=== PATIENT | female | born 1985 | race Caucasian/White ===

== ENCOUNTER 2016-04-28 16:47 | Emergency (ER) | payer BC ==
--- NOTE | 2016-04-28 17:19 | ER Document Report ---
ED Medical Screen (RME) - General Chief Complaint: Hip Injury Stated Complaint: FALL/LEFT HIP PAIN Notes: left hip pain sp fall three days ago I greeted and performed a rapid initial assessment of this patient. Comprehensive ED assessment and evaluation of the patient, analysis of test results and completion of the medical decision making process will be conducted by additional ED providers. TRAVEL OUTSIDE OF THE [place] IN LAST 30 DAYS: No - Related Data Allergies/Adverse Reactions: No Known Allergies Allergy (Verified 11/12/14 02:25) Past Medical History Pulmonary Medical History: Reports: Hx Asthma Infectious Medical History: Reports: Hx MRSA Past Surgical History: Reports: Hx Orthopedic Surgery - right hand Physical Exam - Vital signs Vitals: Temp Pulse Resp BP Pulse Ox 98.3 F 79 16 133/73 H 99 04/28/16 17:09 04/28/16 17:09 04/28/16 17:09 04/28/16 17:09 04/28/16 17:09 Course - Vital Signs Vital signs: Temp Pulse Resp BP Pulse Ox 98.3 F 79 16 133/73 H 99 04/28/16 17:09 04/28/16 17:09 04/28/16 17:09 04/28/16 17:09 04/28/16 17:09
--- NOTE | 2016-04-28 20:23 | ER Document Report ---
ED General - General Chief Complaint: Hip Injury Stated Complaint: FALL/LEFT HIP PAIN Mode of Arrival: Ambulatory Information source: Patient Notes: 30-year-old female presents with complaints of left hip pain after a fall 2 days ago. Patient denies any neurological deficits is able to ambulate. TRAVEL OUTSIDE OF THE [place] IN LAST 30 DAYS: No - HPI Onset: Other Onset/Duration: Persistent Quality of pain: Achy Severity: Mild Pain Level: 1 Associated symptoms: Other Exacerbated by: Movement Relieved by: Denies Similar symptoms previously: No Recently seen / treated by doctor: No - Related Data Allergies/Adverse Reactions: No Known Allergies Allergy (Verified 11/12/14 02:25) Past Medical History - Social History Smoking Status: Unknown if Ever Smoked Cigarette use (# per day): No Chew tobacco use (# tins/day): No Smoking Education Provided: No Family History: Reviewed & Not Pertinent Patient has suicidal ideation: No Patient has homicidal ideation: No Pulmonary Medical History: Reports: Hx Asthma Renal/ Medical History: Denies: Hx Peritoneal Dialysis Infectious Medical History: Reports: Hx MRSA Past Surgical History: Reports: Hx Orthopedic Surgery - right hand Review of Systems - Review of Systems Notes: REVIEW OF SYSTEMS: CONSTITUTIONAL : Denies fever, chills, or sweats. Denies recent illness. EENT: Denies eye, ear, throat, or mouth pain or symptoms. Denies nasal or sinus congestion or discharge. Denies throat, tongue, or mouth swelling or difficulty swallowing. CARDIOVASCULAR: Denies chest pain. Denies palpitations or racing or irregular heart beat. Denies ankle edema. RESPIRATORY: Denies cough, cold, or chest congestion. Denies shortness of breath, difficulty breathing, or wheezing. GASTROINTESTINAL: Denies abdominal pain or distention. Denies nausea, vomiting , or diarrhea. Denies blood in vomitus, stools, or per rectum. Denies black, tarry stools. Denies constipation. GENITOURINARY: Denies difficulty urinating, painful urination, burning, frequency, blood in urine, or discharge. FEMALE GENITOURINARY: Denies vaginal bleeding, heavy or abnormal periods, irregular periods. Denies vaginal discharge or odor. MUSCULOSKELETAL: Admits to left hip pain SKIN: Denies rash, lesions or sores. HEMATOLOGIC : Denies easy bruising or bleeding. LYMPHATIC: Denies swollen, enlarged glands. NEUROLOGICAL: Denies confusion or altered mental status. Denies passing out or loss of consciousness. Denies dizziness or lightheadedness. Denies headache. Denies weakness or paralysis or loss of use of either side. Denies problems with gait or speech. Denies sensory loss, numbness, or tingling. Denies seizures. PSYCHIATRIC: Denies anxiety or stress. Denies depression, suicidal ideation, or homicidal ideation. ALL OTHER SYSTEMS REVIEWED AND NEGATIVE. Dictation was performed using [employer] voice recognition software PHYSICAL EXAMINATION: GENERAL: Well-appearing, well-nourished and in no acute distress. HEAD: Atraumatic, normocephalic. EYES: Pupils equal round and reactive to light, extraocular movements intact, conjunctiva are normal. ENT: Nares patent, oropharynx clear without exudates. Moist mucous membranes. NECK: Normal range of motion, supple without lymphadenopathy LUNGS: Breath sounds clear to auscultation bilaterally and equal. No wheezes rales or rhonchi. HEART: Regular rate and rhythm without murmurs ABDOMEN: Soft, nontender, nondistended abdomen. No guarding, no rebound. No masses appreciated. Female : deferred Musculoskeletal: Normal range of motion, no pitting or edema. No cyanosis. NEUROLOGICAL: Cranial nerves grossly intact. Normal speech, normal gait. Normal sensory, motor exams PSYCH: Normal mood, normal affect. SKIN: Ecchymosis the right antecubital right knee Physical Exam - Vital signs Vitals: Temp Pulse Resp BP Pulse Ox 98.3 F 79 16 133/73 H 99 04/28/16 17:09 04/28/16 17:09 04/28/16 17:09 04/28/16 17:09 04/28/16 17:09 Course - Re-evaluation Re-evalutation: 04/28/16 20:21 X-ray physical examination the left hip notes no abnormality, patient's otherwise stable for discharge After performing a Medical Screening Examination, I estimate there is LOW risk for INTRACRANIAL HEMORRHAGE, UNSTABLE SPINE FRACTURE, CENTRAL CORD SYNDROME, CAUDA EQUINA, THORACIC AORTIC DISSECTION, PNEUMOTHORAX, PERFORATED BOWEL, RUPTURED ABDOMINAL AORTIC ANEURYSM, ACUTE TENDON RUPTURE, COMPARTMENT SYNDROME, or OPEN FRACTURE, thus I consider the discharge disposition reasonable. Also, there is no evidence or peritonitis, sepsis, or toxicity. The patient and I have discussed the diagnosis and risks, and we agree with discharging home to follow-up with their primary doctor with the understanding that symptoms and presentations can change. We also discussed returning to the Emergency Department immediately if new or worsening symptoms occur. We have discussed the symptoms which are most concerning (e.g., bloody stool, fever, changing or worsening pain, vomiting) that necessitate immediate return. - Vital Signs Vital signs: Temp Pulse Resp BP Pulse Ox 98.3 F 79 16 133/73 H 99 04/28/16 17:09 04/28/16 17:09 04/28/16 17:09 04/28/16 17:09 04/28/16 17:09 - Diagnostic Test Radiology reviewed: Image reviewed, Reports reviewed Discharge - Discharge Clinical Impression: Left hip pain, MRSA (methicillin resistant Staphylococcus aureus) infection Low back pain Qualifiers: Chronicity: acute Back pain laterality: left Sciatica presence: without sciatica Qualified Code(s): M54.5 - Low back pain Condition: Stable Disposition: HOME, SELF-CARE Instructions: Low Back Pain ([facility]) Additional Instructions: Follow up with your physician tomorrow for further care or return to the ED IMMEDIATELY if symptoms worsen or new concerns occur Prescriptions: Ibuprofen [Motrin 800 mg Tablet] 800 mg PO Q8H PRN #30 tab PRN Reason: Prednisone [Deltasone 20 mg Tablet] 3 tab PO DAILY 5 Days
[2016-04-29 01:25] VITALS: BP 109/81
== END 2016-04-28 20:40 | disposition home or self-care (01) ==
LOC: ER 16:47
DX: M25.552 Pain in left hip (principal); A49.02 Methicillin resistant Staphylococcus aureus infection, unspecified site; M54.5 Low back pain; W19.XXXA Unspecified fall, initial encounter; Z86.14 Personal history of Methicillin resistant Staphylococcus aureus infection
CPT/HCPCS: 99283

== ENCOUNTER 2016-09-28 15:48 | Emergency (ER) | payer BC ==
[2016-09-28] MEDS ORDERED: DIPH/PERTUSS(ACELL)/TETANUS VAC/PF 0.5 ML SYR (>=10YO) IM ONE (16:11)
[2016-09-28] MEDS ORDERED: IBUPROFEN 800 MG TABLET PO ONE (16:11)
[2016-09-28] MEDS ORDERED: SILVER SULFADIAZINE 1% CREAM 25 GM TP ONE (16:11)
--- NOTE | 2016-09-28 16:17 | ER Document Report ---
HPI - HPI Patient complains to provider of: sunburn Onset: Other - 4 days Onset/Duration: Persistent Quality of pain: Burning Pain Level: 5 Context: Complains of sunburn that she received 4 days ago. Patient states that initially she did blister and the skin has peeled. Patient complains of continued bilateral shoulder pain since then. Patient without any fever. Associated Symptoms: Other - sunburn Exacerbated by: Denies Relieved by: Denies Similar symptoms previously: No Recently seen / treated by doctor: No - ROS ROS below otherwise negative: Yes Systems Reviewed and Negative: Yes All other systems reviewed and negative - CONSTITUTIONAL Constitutional: DENIES: Fever, Chills - GASTROINTESTINAL Gastrointestinal: DENIES: Nausea - REPRODUCTIVE Reproductive: DENIES: : - DERM Skin Color: Normal Skin Problems: Burn Past Medical History - General Information source: Patient - Social History Smoking Status: Current Every Day Smoker Frequency of alcohol use: Occasional Drug Abuse: None Occupation: [employer] Family History: Reviewed & Not Pertinent Patient has suicidal ideation: No Patient has homicidal ideation: No Pulmonary Medical History: Reports: Hx Asthma Renal/ Medical History: Denies: Hx Peritoneal Dialysis Infectious Medical History: Reports: Hx MRSA Past Surgical History: Reports: Hx Orthopedic Surgery - right hand Vertical Provider Document - CONSTITUTIONAL Agree With Documented VS: Yes Exam Limitations: No Limitations General Appearance: WD/WN, No Apparent Distress - INFECTION CONTROL TRAVEL OUTSIDE OF THE [place] IN LAST 30 DAYS: No - HEENT HEENT: Atraumatic, Normocephalic - NECK Neck: Normal Inspection - RESPIRATORY Respiratory: Breath Sounds Normal, No Respiratory Distress O2 Sat by Pulse Oximetry: 98 - CARDIOVASCULAR Cardiovascular: Regular Rate, Regular Rhythm - BACK Back: Normal Inspection - MUSCULOSKELETAL/EXTREMETIES Musculoskeletal/Extremeties: MAEW - NEURO Level of Consciousness: Awake, Alert, Appropriate Motor/Sensory: No Motor Deficit - DERM Integumentary: Warm, Dry Notes: partial thickness burn to bilateral upper shoulder/trapezius area, skin gustavo in color and crusting, with peeling along margins, no concern for cellulitis Course - Vital Signs Vital signs: Temp Pulse Resp BP Pulse Ox 98.3 F 89 16 127/71 H 98 09/28/16 15:54 09/28/16 15:54 09/28/16 15:54 09/28/16 15:54 09/28/16 15:54 Discharge - Discharge Clinical Impression: Sunburn Condition: Stable Disposition: HOME, SELF-CARE Instructions: Sunburn ([facility]), Silvadene Cream ([facility], [facility]), Anti-Inflammatory Medication ([facility]), Tetanus Immunization Given ([facility], [facility]), Family Physicians / Practices Additional Instructions: Return immediately for any new or worsening symptoms Followup with your primary care provider, call tomorrow to make a followup appointment Avoid any sun exposure. Wear sunblock when outside. Apply Silvadene cream daily with dressing change to bilateral shoulder area. Prescriptions: Naproxen [Naprosyn 250 Nmg Tablet] 1 tab PO BID #14 tablet Silver Sulfadiazine [Silvadene 1% Cream 50 gm Tube] 1 applic TP BID #50 grams Forms: Return to Work Referrals: [facility] [Provider Group] - Follow up as needed
[2016-09-28 16:47] VITALS: BP 122/75
== END 2016-09-28 16:45 | disposition home or self-care (01) ==
LOC: ER 15:48
DX: L55.9 Sunburn, unspecified (principal); F17.200 Nicotine dependence, unspecified, uncomplicated; Z86.14 Personal history of Methicillin resistant Staphylococcus aureus infection; Z23 Encounter for immunization
CPT/HCPCS: 90471; 90715; 99283

== ENCOUNTER 2017-01-03 11:42 | Emergency (ER) | payer BC ==
[2017-01-03] MEDS ORDERED: HYDROCODONE/ACETAMINOPHEN 5-325 MG TABLET PO ONE (12:22)
--- NOTE | 2017-01-03 12:23 | ER Document Report ---
HPI - HPI Patient complains to provider of: Left knee pain Onset: Yesterday Onset/Duration: Persistent Quality of pain: Sharp Pain Level: 5 Context: Patient states she was bending down and then stood up and her left knee gave out. Patient states since then she has had left knee joint tenderness to superior aspect of knee. Patient does complain of swelling. Associated Symptoms: Other - Left knee joint pain Exacerbated by: Standing, Movement, Walking Relieved by: Denies Similar symptoms previously: No Recently seen / treated by doctor: No - ROS ROS below otherwise negative: Yes Systems Reviewed and Negative: Yes All other systems reviewed and negative - CONSTITUTIONAL Constitutional: DENIES: Fever - GASTROINTESTINAL Gastrointestinal: DENIES: Nausea - REPRODUCTIVE LMP: 12/29/2016 Reproductive: DENIES: : - MUSCULOSKELETAL Musculoskeletal: REPORTS: Extremity pain, Swelling - DERM Skin Color: Normal Skin Problems: None Past Medical History - General Information source: Patient - Social History Smoking Status: Current Every Day Smoker Chew tobacco use (# tins/day): No - 1ppd Frequency of alcohol use: Occasional Drug Abuse: None 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 IN LAST 30 DAYS: No - HEENT HEENT: Atraumatic, Normocephalic - NECK Neck: Normal Inspection - RESPIRATORY Respiratory: No Respiratory Distress O2 Sat by Pulse Oximetry: 98 - CARDIOVASCULAR Pulses: Normal: Posterior tibial - MUSCULOSKELETAL/EXTREMETIES Musculoskeletal/Extremeties: MAEW, Tender - Left knee joint tenderness along lateral compartment, no obvious effusion, no laxity with varus or valgus maneuvers, patellar tendon intact, normal skin color and temperature overlying joint - NEURO Level of Consciousness: Awake, Alert, Appropriate Motor/Sensory: No Motor Deficit - DERM Integumentary: Warm, Dry, No Rash Course - Re-evaluation Re-evalutation: 01/03/17 13:40 The patient has been informed that they may have pre-hypertension or hypertension based on a blood pressure reading in the emergency department. I recommend that patient call the primary care provider listed on their discharge instructions or a physician of their choice by this week to arrange follow-up for further evaluation of possible pre-hypertension or hypertension. - Vital Signs Vital signs: Temp Pulse Resp BP Pulse Ox 98.1 F 93 14 140/81 H 98 01/03/17 11:46 01/03/17 11:46 01/03/17 11:46 01/03/17 11:46 01/03/17 11:46 - Diagnostic Test Radiology reviewed: Image reviewed, Reports reviewed Procedures - Immobilization Left Knee Pre-Proc Neuro Vasc Exam: Normal Immobilizer type: Dayo wrap, Knee immobilizer Performed by: PCT Post-Proc Neuro Vasc Exam: Normal Alignment checked and good: Yes Discharge - Discharge Clinical Impression: Elevated blood pressure reading Left knee sprain Qualifiers: Encounter type: initial encounter Involved ligament of knee: unspecified ligament Qualified Code(s): S83.92XA - Sprain of unspecified site of left knee, initial encounter Joint effusion of knee Qualifiers: Laterality: left Qualified Code(s): M25.462 - Effusion, left knee Condition: Stable Disposition: HOME, SELF-CARE Instructions: Use of Crutches ([facility]), Ice & Elevation ([facility]), Suspected Internal Knee Injury ([facility]), Knee Immobilizing Splint ([facility]), Oral Narcotic Medication ([facility] ), Sprained Knee ([facility]) Additional Instructions: Return immediately for any new or worsening symptoms Followup with your primary care provider, call tomorrow to make a followup appointment Follow-up with orthopedic doctor for further evaluation, call Friday for an appointment Prescriptions: Hydrocodone/Acetaminophen [Holladay 5-325 Tablet] 1 each PO Q4 PRN #15 tablet PRN Reason: Forms: Elevated Blood Pressure, Return to Work Referrals: [facility] [Provider Group] - Follow up in 3-5 days
--- NOTE | 2017-01-03 13:22 | RADIOLOGY REPORT (SQ) ---
EXAM DESCRIPTION: KNEE LEFT 4 VIEW COMPLETED DATE/TIME: 01/03/2017 12:49 pm REASON FOR STUDY: left knee pain, knee gave out COMPARISON: None. NUMBER OF VIEWS: Four views. TECHNIQUE: AP, lateral, and both oblique radiographic images acquired of the left knee. LIMITATIONS: None. FINDINGS: MINERALIZATION: Normal. BONES: No acute fracture or dislocation. No worrisome bone lesions. JOINT: Small suprapatellar knee joint effusion. This may indicate internal derangement from ligament tear or meniscal injury. Mild medial compartment joint space narrowing. SOFT TISSUES: No soft tissue swelling. No radio-opaque foreign body. OTHER: No other significant finding. IMPRESSION: Small suprapatellar knee joint effusion. This could indicate internal derangement TECHNICAL DOCUMENTATION: JOB ID: [id number] [employer]- All Rights Reserved
[2017-01-03 13:56] VITALS: BP 115/73
== END 2017-01-03 14:01 | disposition home or self-care (01) ==
LOC: ER 11:42
DX: S83.92XA Sprain of unspecified site of left knee, initial encounter (principal); M25.462 Effusion, left knee; R03.0 Elevated blood-pressure reading, without diagnosis of hypertension; M25.562 Pain in left knee; M79.89 Other specified soft tissue disorders; F17.210 Nicotine dependence, cigarettes, uncomplicated; X58.XXXA Exposure to other specified factors, initial encounter
CPT/HCPCS: 99283; 73562; L1830

== ENCOUNTER 2017-07-21 14:20 | Emergency (ER) | payer BC ==
--- NOTE | 2017-07-21 15:28 | RADIOLOGY REPORT (SQ) ---
EXAM DESCRIPTION: KNEE LEFT 4 VIEW COMPLETED DATE/TIME: 07/21/2017 3:10 pm REASON FOR STUDY: left knee pain COMPARISON: 01/03/2017. NUMBER OF VIEWS: Four views. TECHNIQUE: AP, lateral, and both oblique radiographic images acquired of the left knee. LIMITATIONS: None. FINDINGS: MINERALIZATION: Normal. BONES: No acute fracture or dislocation. No worrisome bone lesions. JOINT: No effusion. SOFT TISSUES: No soft tissue swelling. No radio-opaque foreign body. OTHER: No other significant finding. IMPRESSION: NEGATIVE STUDY OF THE LEFT KNEE. NO RADIOGRAPHIC EVIDENCE OF ACUTE INJURY. TECHNICAL DOCUMENTATION: JOB ID: [id number] [employer] All Rights Reserved Reading location - IP/workstation name: [email or web address]
[2017-07-21] MEDS ORDERED: IBUPROFEN 600 MG TABLET PO ONE (16:04)
[2017-07-21] MEDS ORDERED: ACETAMINOPHEN 325 MG TABLET PO ONE (16:04)
--- NOTE | 2017-07-21 17:05 | ER Document Report ---
HPI - HPI Patient complains to provider of: fell on left knee Onset: This morning Quality of pain: Throbbing Pain Level: 4 Context: 32 yo female fell on step at home injuring left knee. Sharp pain when she steps down on the knee now. No previous injury. Associated Symptoms: None Exacerbated by: Walking Relieved by: Denies - ROS ROS below otherwise negative: Yes Systems Reviewed and Negative: Yes All other systems reviewed and negative - REPRODUCTIVE Reproductive: DENIES: : - MUSCULOSKELETAL Musculoskeletal: REPORTS: Extremity pain - left knee Past Medical History - General Information source: Patient - Social History Smoking Status: Current Every Day Smoker Frequency of alcohol use: Social Drug Abuse: None Lives with: Family Family History: Reviewed & Not Pertinent Patient has suicidal ideation: No Patient has homicidal ideation: No Pulmonary Medical History: Reports: Hx Asthma Renal/ Medical History: Denies: Hx Peritoneal Dialysis Infectious Medical History: Reports: Hx MRSA Past Surgical History: Reports: Hx Orthopedic Surgery - right hand - Immunizations Hx Diphtheria, Pertussis, Tetanus Vaccination: Yes Vertical Provider Document - CONSTITUTIONAL Agree With Documented VS: Yes Exam Limitations: No Limitations General Appearance: No Apparent Distress - INFECTION CONTROL TRAVEL OUTSIDE OF THE [place] IN LAST 30 DAYS: No - HEENT HEENT: Normocephalic - NECK Neck: Supple - MUSCULOSKELETAL/EXTREMETIES Musculoskeletal/Extremeties: Tender - anterior left knee, no effusion, patellar tendon intact, no swelling or erythema. negative: Edema, Eccymosis - NEURO Level of Consciousness: Awake, Alert - DERM Integumentary: No Rash Course - Re-evaluation Re-evalutation: 07/21/17 xray negative per rad - Vital Signs Vital signs: Temp Pulse Resp BP Pulse Ox 97.8 F 86 14 133/80 H 99 07/21/17 15:16 07/21/17 15:16 07/21/17 15:16 07/21/17 15:16 07/21/17 15:16 Procedures - Immobilization Left Knee Time completed: 17:30 Pre-Proc Neuro Vasc Exam: Normal Immobilizer type: Knee immobilizer Performed by: PCT Post-Proc Neuro Vasc Exam: Normal Alignment checked and good: Yes Discharge - Discharge Clinical Impression: Contusion of left knee Qualifiers: Encounter type: initial encounter Qualified Code(s): S80.02XA - Contusion of left knee, initial encounter Condition: Good Disposition: HOME, SELF-CARE Instructions: Contusion ([facility]), Use of Crutches ([facility]), Knee Immobilizing Splint ([facility]), Oral Narcotic Medication ([facility]) Additional Instructions: Knee immobilizer this week Crutches this week See orthopedist for knee follow-up if this pain persists Return to the emergency room any concerns Prescriptions: Hydrocodone Bit/Acetaminophen [Hydrocodon-Acetaminophen 5-325] 1 each PO Q4HP PRN #15 tablet PRN Reason: Ibuprofen [Motrin 800 mg Tablet] 800 mg PO Q8HP PRN #30 tablet PRN Reason: Forms: Return to Work Referrals: SMITHA AGUSTIN DO [ACTIVE STAFF] - Follow up as needed
[2017-07-21 17:47] VITALS: BP 105/67
== END 2017-07-21 17:47 | disposition home or self-care (01) ==
LOC: ER 14:20
DX: S80.02XA Contusion of left knee, initial encounter (principal); M25.562 Pain in left knee; W01.0XXA Fall on same level from slipping, tripping and stumbling without subsequent striking against object, initial encounter; Y92.009 Unspecified place in unspecified non-institutional (private) residence as the place of occurrence of the external cause; J45.909 Unspecified asthma, uncomplicated; F17.200 Nicotine dependence, unspecified, uncomplicated
CPT/HCPCS: 99283; 73562; L1830

== ENCOUNTER 2018-08-09 21:32 | Emergency (ER) | payer BC ==
[2018-08-09] MEDS ORDERED: OXYCODONE-ACETAMINOPHEN 5-325 MG TABLET PO ONE (22:03)
--- NOTE | 2018-08-09 22:52 | RADIOLOGY REPORT (SQ) ---
EXAM DESCRIPTION: XR HAND 3 OR MORE VIEWS COMPLETED DATE/TME: 08/09/2018 00:00 CLINICAL HISTORY: 33 years, Female, r/o fx COMPARISON: None. NUMBER OF VIEWS: Three TECHNIQUE: Frontal, oblique, and lateral radiographs of the right hand were obtained LIMITATIONS: None. FINDINGS: Visualized osseous structures are normal in appearance. Joint spaces are well-maintained. No acute fracture or dislocation is evident. IMPRESSION: No acute osseous anomaly. copyright 2010 [employer]- All Rights Reserved
--- NOTE | 2018-08-09 23:10 | ER Document Report ---
ED Hand/Wrist Injury - General Chief Complaint: Hand Injury Stated Complaint: RIGHT PINKY FINGER PAIN Time Seen by Provider: 08/09/18 21:58 Mode of Arrival: Ambulatory Information source: Patient, Friend Notes: Patient is a 31-year-old female comes emergency room complaining of right hand pain. Patient states that she got angry tonight and she hit a refrigerator with her right hand with a closed fist. She is complaining of right little finger pain and swelling and second knuckle pain and swelling on the fourth digit. Patient states she has done this in the past but never to this extent. She denies any other injuries. TRAVEL OUTSIDE OF THE [place] IN LAST 30 DAYS: No - HPI Injury to: Ring finger, Small finger Onset: Just prior to arrival Where: Home Timing: Constant Quality of pain: Fullness, Pressure, Sharp, Stabbing, Throbbing Severity: Moderate Pain Level: 3 Context: Blow - Related Data Allergies/Adverse Reactions: No Known Allergies Allergy (Verified 01/03/17 11:47) Past Medical History - General Information source: Patient, Friend - Social History Smoking Status: Current Every Day Smoker Cigarette use (# per day): Yes - Pack a day Chew tobacco use (# tins/day): No Smoking Education Provided: No Frequency of alcohol use: None Drug Abuse: None Lives with: Family, Spouse/Significant other Family History: Reviewed & Not Pertinent Patient has suicidal ideation: No Patient has homicidal ideation: No Pulmonary Medical History: Reports: Hx Asthma Renal/ Medical History: Denies: Hx Peritoneal Dialysis Infectious Medical History: Reports: Hx MRSA Past Surgical History: Reports: Hx Orthopedic Surgery - right hand - Immunizations Hx Diphtheria, Pertussis, Tetanus Vaccination: Yes Review of Systems - Review of Systems Constitutional: No symptoms reported EENT: No symptoms reported Cardiovascular: No symptoms reported Respiratory: No symptoms reported Gastrointestinal: No symptoms reported Genitourinary: No symptoms reported Female Genitourinary: No symptoms reported Musculoskeletal: Joint pain, Joint swelling, Muscle pain Skin: No symptoms reported Hematologic/Lymphatic: No symptoms reported Neurological/Psychological: No symptoms reported -: Yes All other systems reviewed and negative Physical Exam - Vital signs Vitals: Temp Pulse Resp BP Pulse Ox 98.0 F 89 18 122/92 H 100 08/09/18 21:47 08/09/18 21:47 08/09/18 21:47 08/09/18 21:47 08/09/18 21:47 Interpretation: Other - Diastolic hypertension - Notes Notes: PHYSICAL EXAMINATION: GENERAL: Patient is well-nourished well-developed 33-year-old female who is in no apparent distress on physical exam tonight however she is in moderate amount of pain and discomfort appearing LUNGS: Breath sounds clear to auscultation bilaterally and equal. No wheezes rales or rhonchi. HEART: Regular rate and rhythm without murmurs ABDOMEN: Soft, nontender, nondistended abdomen. No guarding, no rebound. No masses appreciated. Musculoskeletal: examination patient's area of concern is her right hand. Examination shows that the right little finger is swollen at the PIP and the DIP. She has swelling also noted at the distal portion of the metacarpal. She has swelling and mild ecchymosis at the distal end of the fourth metacarpal. Patient has reduced extension of the right little finger but has full extension and flexion of her other fingers on the right hand. She has good cap refill in the nailbeds of all the fingers of the right hand but has lost strength in extension of the finger as well as in flexion of the finger. Examination patient underneath her right little finger shows moderate amount of swelling with a faint amount of ecchymosis running along the flexor tendon. There does appear to be motion in that flexor tendon with active range of motion. Do not know if it is severed tendon or not. NEUROLOGICAL: . Normal speech, normal gait. Normal sensory, motor exams PSYCH: Normal mood, normal affect. SKIN: Examination of the rest of the hand shows her to be moderate amount of ecchymosis in different stages of color disorientation from a maroonish purple to full purple. No abrasions noted to the right hand. Course - Re-evaluation Re-evalutation: 08/09/18 23:13 Patient's x-ray did not show any sign of fracture. However I am going to put her in a improvised boxer splint with Ortho-Glass. I am concerned that she may have ruptured or partially torn to the flexor tendon of the little finger. I have informed her she will need to see an orthopedist. With though we do not have an orthopedic correctional supervisor tonight I am going to give her the name of Dr. Andersen to see if they can accommodate her by working her in. If not she is been informed that she can contact any orthopedist she would like. - Vital Signs Vital signs: Temp Pulse Resp BP Pulse Ox 98.0 F 89 18 122/92 H 100 08/09/18 21:47 08/09/18 21:47 08/09/18 21:47 08/09/18 21:47 08/09/18 21:47 Procedures - Immobilization Right Hand Time completed: 23:15 Pre-Proc Neuro Vasc Exam: Normal Immobilizer type: Other - Ortho-Glass boxer splint Performed by: PCT Post-Proc Neuro Vasc Exam: Normal, Unchanged from pre-exam Alignment checked and good: Yes Discharge - Discharge Clinical Impression: Contusion of right hand Qualifiers: Encounter type: initial encounter Qualified Code(s): S60.221A - Contusion of right hand, initial encounter Rupture of flexor tendon of right hand Qualifiers: Encounter type: initial encounter Qualified Code(s): S66.811A - Strain of other specified muscles, fascia and tendons at wrist and hand level, right hand, initial encounter Condition: Stable Disposition: HOME, SELF-CARE Instructions: Tendon Strain ([facility]), Contusion ([facility]) Additional Instructions: Leave splint on until 3 days from now. After 3 days take it off and attempt to straighten the finger. If it does not straighten he will need to see an orthopedist. I am giving you the name of an orthopedist here in town he may contact his office to see if he can accommodate you. If he cannot you may contact any orthopedist you would like. Ice to the area through the splint 3 times a day. This you can do by simply placing a garbage bag over top of it and using ice packs on above and below the area. He can also take ibuprofen 800 mg 3 times a day with food for pain. I am giving you a little bit of pain medication in case this is an flexor tendon rupture and she is going to be painful but you will need to see someone within the next 3 days. Should you have any concerns or problems return to ER for recheck. Prescriptions: Oxycodone HCl/Acetaminophen [Percocet 5-325 mg Tablet] 1 tab PO Q4H PRN #15 tablet PRN Reason: Forms: Elevated Blood Pressure, Smoking Cessation Education, Return to School
[2018-08-09 23:20] VITALS: BP 116/82
== END 2018-08-09 23:22 | disposition home or self-care (01) ==
LOC: ER 21:32
DX: S66.911A Strain of unspecified muscle, fascia and tendon at wrist and hand level, right hand, initial encounter (principal); W22.09XA Striking against other stationary object, initial encounter; Y92.009 Unspecified place in unspecified non-institutional (private) residence as the place of occurrence of the external cause; F17.210 Nicotine dependence, cigarettes, uncomplicated; J45.909 Unspecified asthma, uncomplicated
CPT/HCPCS: 99283

== ENCOUNTER 2018-10-18 20:10 | Emergency (ER) | payer BC ==
[2018-10-18 20:25] VITALS: BP 127/69
[2018-10-18] MEDS ORDERED: IPRATROPIUM/ALBUTEROL 0.5-2.5 MG/3 ML AMPUL NEB ONE (22:38)
[2018-10-18] MEDS ORDERED: BENZONATATE 100 MG CAPSULE PO ONE (22:38)
--- NOTE | 2018-10-18 22:43 | ER Document Report ---
HPI - HPI Time Seen by Provider: 10/18/18 22:32 Pain Level: 4 Context: Patient is a 33-year-old female who presents to the emergency department with a chief complaint of cough. Patient states she has developed a productive cough with thick green sputum over the past 2 weeks. Patient states she is also had significant purulent green nasal drainage with sinus pressure and a feeling of fullness in her head. Patient states she did have asthma as a child but has not had any issues since. Patient denies fever. Patient states she has attempted to use DayQuil and Mucinex without relief. Patient does smoke 1 pack/day. - NEURO Neurology: REPORTS: Headache - RESPIRATORY Respiratory: REPORTS: Coughing - REPRODUCTIVE Reproductive: DENIES: : Past Medical History - General Information source: Patient - Social History Smoking Status: Current Every Day Smoker Cigarette use (# per day): Yes - 1 ppd Chew tobacco use (# tins/day): No Frequency of alcohol use: None Drug Abuse: None Lives with: Alone Family History: Reviewed & Not Pertinent Patient has suicidal ideation: No Patient has homicidal ideation: No - Past Medical History Cardiac Medical History: Reports: None Pulmonary Medical History: Reports: Hx Asthma EENT Medical History: Reports: None Neurological Medical History: Reports: None Endocrine Medical History: Reports: None Renal/ Medical History: Reports: None. Denies: Hx Peritoneal Dialysis Malignancy Medical History: Reports: None GI Medical History: Reports: None Musculoskeletal Medical History: Reports None Skin Medical History: Reports None Psychiatric Medical History: Reports: None Traumatic Medical History: Reports: None Infectious Medical History: Reports: Hx MRSA Past Surgical History: Reports: Hx Orthopedic Surgery - right hand - Immunizations Hx Diphtheria, Pertussis, Tetanus Vaccination: Yes Vertical Provider Document - CONSTITUTIONAL Agree With Documented VS: Yes Exam Limitations: No Limitations General Appearance: No Apparent Distress Notes: GENERAL: Well-appearing, well-nourished, constant productive cough in triage. HEAD: Atraumatic, normocephalic. EYES: Pupils equal round and reactive to light, extraocular movements intact, sclera anicteric, conjunctiva are normal. ENT: TMs normal, nares patent, oropharynx erythematous without exudates. Moist mucous membranes. NECK: Normal range of motion, supple without lymphadenopathy or JVD. LUNGS: Expiratory wheeze noted throughout all lungs caballero with scattered rhonchi that clears with cough. No resp distress. Continuous cough during assessment. HEART: Regular rate and rhythm without murmurs, rubs or gallops. ABDOMEN: Soft, nontender, normoactive bowel sounds. No guarding, no rebound. No masses appreciated. BACK: No cervical, thoracic, lumbar midline tenderness. No saddle anesthesia, normal distal neurovascular exam. GENITOURINARY: Deferred. EXTREMITIES: Normal range of motion, no pitting or edema. No clubbing or cyanosis. NEUROLOGICAL: Cranial nerves II through XII grossly intact. Normal speech, normal gait. PSYCH: Normal mood, normal affect. SKIN: Warm, Dry, normal turgor, no rashes or lesions noted. - INFECTION CONTROL TRAVEL OUTSIDE OF THE [place] IN LAST 30 DAYS: No Course - Re-evaluation Re-evalutation: 10/18/18 22:42 During initial evaluation patient has a continuous productive cough. I will obtain a chest x-ray to rule out pneumonia as her symptoms have been present for 2 weeks. Patient has expiratory wheezing, will give a breathing treatment in triage. 10/19/18 00:03 Patient vitals stable. Patient continues to cough. Will place on antibiotics for sinus infection, steroids for bronchitis and a cough syrup. Patient stable at discharge and in no acute distress. - Vital Signs Vital signs: Temp Pulse Resp BP Pulse Ox 98.4 F 97 18 127/69 H 98 10/18/18 20:22 10/18/18 20:22 10/18/18 20:22 10/18/18 20:22 10/18/18 20:22 - Diagnostic Test Radiology reviewed: Image reviewed, Reports reviewed Radiology results interpreted by me: 10/18/18 23:55 Chest X-Ray 10/18/18 22:37 IMPRESSION: Increased perihilar and peribronchial interstitial opacities, which may be due to reactive airway disease or a viral process. Discharge - Discharge Clinical Impression: Bronchitis, Productive cough Sinus infection Qualifiers: Sinusitis location: maxillary Chronicity: acute Recurrence: non-recurrent Qualified Code(s): J01.00 - Acute maxillary sinusitis, unspecified Condition: Stable Disposition: HOME, SELF-CARE Additional Instructions: Today you were seen in the ER for cough, headache and sinus drainage. At this time you do not have pneumonia but your symptoms are consistent with bronchitis and a sinus infection. You will be placed on oral antibiotics for 7 days for the sinus infection. I will give you an Albuterol inhaler at discharge that you will take as needed for wheezing. You are being prescribed a narcotic cough medication - do not drive or operate heavy machinery while on this medication. Return to the ER if you develop wheezing, fever, vomiting, or worsening symptoms. STOP SMOKING at this can be an irritant and worsen your symptoms. Sinusitis You have sinusitis, an infection of the sinus cavities of the face. The sinuses are air-filled chambers which open into the inside of the nose. Bacteria and pus fill a sinus, causing pain, drainage, and fever. Sinusitis is treated with antibiotics. Often, expectorants (to thin the sinus mucous) or decongestants (to reduce swelling) are prescribed as well. Healing requires seven to 10 days. Avoid chemical fumes, pollens, dusts, and smoke (especially cigarette smoke). Keep the air humidified in your bedroom and work area and take plenty of liquids by mouth. This condition can be serious if the infection spreads. If your symptoms worsen, or if you develop severe headache, high fever, stiff neck, or a rash, you must call the doctor or return for re-evaluation. Bronchitis You have acute bronchitis. This disease is an infection or inflammation of the air passageways in your lungs. Symptoms usually include cough, low grade fever, shortness of breath, and wheezing. The cough usually persists for a couple of weeks. Most cases of bronchitis get better without antibiotics. We prescribe antibiotics when we believe bacteria are damaging your airways, or if there's high risk the bronchitis will worsen into pneumonia. Increase your fluid intake. A cool mist humidifier may make your lungs more comfortable. An expectorant (cough medicine that loosens phlegm) can help. If you smoke, STOP!!! Recovery from bronchitis can be somewhat slow, but you should see improvement within a day or two. Repeated episodes of bronchitis may result in lung damage -- for example, chronic bronchitis, recurrent pneumonias, or emphysema. Call the doctor if you develop increasing fever, shortness of breath, chest pain, bloody sputum, or otherwise worsen. If you have not improved at all after several days, contact the physician. Prescriptions: Amox Tr/Potassium Clavulanate [Augmentin 875-125 Tablet] 1 tab PO BID 7 Days tablet Codeine/Promethazine HCl [Promethazine-Codeine Syrup] 5 ml PO Q4 PRN #1 bottle PRN Reason: Prednisone [Deltasone 10 mg Tablet] 10 mg PO ASDIR PRN #21 tablet PRN Reason:
--- NOTE | 2018-10-18 23:38 | RADIOLOGY REPORT (SQ) ---
EXAM DESCRIPTION: XR CHEST 2 VIEWS COMPLETED DATE/TME: 10/18/2018 22:37 CLINICAL HISTORY: 33 years, Female, productive cough x 2 weeks COMPARISON: None. NUMBER OF VIEWS: Two TECHNIQUE: Two views of the chest LIMITATIONS: None. FINDINGS: There are increased peribronchial and perihilar interstitial opacities. The heart is normal in size. There is no focal consolidation. There is no pneumothorax or pleural effusion. IMPRESSION: Increased perihilar and peribronchial interstitial opacities, which may be due to reactive airway disease or a viral process. copyright 2010 [employer]- All Rights Reserved
[2018-10-18] MEDS ORDERED: ALBUTEROL SULFATE HFA (90 MCG/PUFF) 8 GM MDI (1 MDI/ER DISP) IH ONE (23:56)
== END 2018-10-19 00:09 | disposition home or self-care (01) ==
LOC: ER 20:10
DX: J40 Bronchitis, not specified as acute or chronic (principal); J01.00 Acute maxillary sinusitis, unspecified; R05 Cough; F17.210 Nicotine dependence, cigarettes, uncomplicated
CPT/HCPCS: 94640; 99283; 71046; J3490; J7620

== ENCOUNTER 2018-12-01 21:56 | Emergency (ER) | payer BC ==
[2018-12-01] MEDS ORDERED: IBUPROFEN 600 MG TABLET PO ONE (23:56)
[2018-12-01] MEDS ORDERED: DIPH/PERTUSS(ACELL)/TETANUS VAC/PF 0.5 ML SYR (>=10YO) IM ONE (23:59)
--- NOTE | 2018-12-02 00:20 | ER Document Report ---
ED Skin Rash/Insect Bite/Abscs - General Chief Complaint: Insect Bite Stated Complaint: POSSIBLE SNAKE BITE Time Seen by Provider: 12/01/18 22:52 Notes: Healthy 33-year-old female presents to the emergency department with chief complaint of possible snake bite that occurred at 7:30 PM tonight. Patient states she was in a "dilapidated" shed where there was a bunch of old wood stacked up and when she stepped out she felt a burning sensation on the distal portion of her right nj, there is a small blood blister, and then it erupted and there appeared to be a small lesion potentially consistent with puncture wounds. The lesions are approximately 2 mm apart, there is some mild erythema surrounding it, patient is complaining of a constant stinging, burning pain that, periodically, when she is standing and walking extends up to her knee, and is also complaining of cramping and tingling in her calf that is very intermittent. Patient denies fevers or chills, denies acute shortness of breath or chest pain denies nausea or vomiting, denies any significant bruising in the area. Tetanus is not up-to-date. TRAVEL OUTSIDE OF THE [place] IN LAST 30 DAYS: No - Related Data Allergies/Adverse Reactions: No Known Allergies Allergy (Verified 01/03/17 11:47) Past Medical History - Social History Smoking Status: Never Smoker Family History: Reviewed & Not Pertinent Patient has suicidal ideation: No Patient has homicidal ideation: No Pulmonary Medical History: Reports: Hx Asthma Renal/ Medical History: Denies: Hx Peritoneal Dialysis Infectious Medical History: Reports: Hx MRSA Past Surgical History: Reports: Hx Orthopedic Surgery - right hand - Immunizations Hx Diphtheria, Pertussis, Tetanus Vaccination: Yes Review of Systems - Review of Systems Constitutional: See HPI EENT: No symptoms reported Cardiovascular: No symptoms reported Respiratory: No symptoms reported Gastrointestinal: See HPI Genitourinary: No symptoms reported Female Genitourinary: No symptoms reported Musculoskeletal: See HPI Skin: See HPI Hematologic/Lymphatic: No symptoms reported Neurological/Psychological: See HPI Physical Exam - Vital signs Vitals: Temp Pulse Resp BP Pulse Ox 98.3 F 108 H 18 134/83 H 99 12/01/18 22:00 12/01/18 22:00 12/01/18 22:00 12/01/18 22:00 12/01/18 22:00 - Notes Notes: PHYSICAL EXAMINATION: Reviewed vital signs and charting by RN GENERAL: Alert, interacts well. No acute distress. HEAD: Normocephalic, atraumatic. EYES: Pupils equal and round. Extraocular movements intact. ENT: Oral mucosa moist, tongue midline. NECK: Full range of motion. Trachea midline. LUNGS: Clear to auscultation bilaterally, no wheezes, rales, or rhonchi. No respiratory distress. HEART: Regular rate and rhythm. No murmur ABDOMEN: soft, non-tender. No distention. Bowel sounds present EXTREMITIES: Moves all 4 extremities spontaneously. No edema, No cyanosis. PSYCH: Normal affect, normal mood. SKIN: Warm, dry, normal turgor. Small area on the distal right anterior lower extremity that could potentially be a puncture wound from a bite versus the remnants of a blood blister with skin was torn off, mild erythema surrounding it extends out approximately 1 mm to 2 mm in all directions, no evidence of ecchymosis, no petechiae or purpura seen on her leg Course - Re-evaluation Re-evalutation: 12/02/18 00:16 I spoke with Perlita at poison control and her recommendation was that we monitor for 8 hours post bite and get coagulation studies at the 6-hour gutierrez. I discussed this with the patient and she does agree with plan. They have been ordered and are timed for 0130. She also received a tetanus booster. 12/02/18 01:57 Lab work all returned within normal limits. Patient still has approximately 90 minutes of observation but the skin was marked and there has been no spreading of erythema or any progress of the wound. I discussed this with LEFTY Strauss, who I signed the patient out to. 12/02/18 02:02 Patient decided that she wanted to leave and did not want to wait for the rest of the observation. Patient signed an AGAINST MEDICAL ADVICE form prior to me being able to speak with her although she knows the potential risks. I do feel that the rash has not spread at this 6.5-hour gutierrez and she most likely will not decompensate but she does understand the potential risks and knows her return precautions. - Vital Signs Vital signs: Temp Pulse Resp BP Pulse Ox 98.9 F 108 H 20 136/75 H 100 12/02/18 00:36 12/01/18 22:10 12/02/18 01:04 12/02/18 01:01 12/02/18 01:04 - Laboratory Result Diagrams: 12/02/18 01:15 Laboratory results interpreted by me: 12/02/18 01:15 Hgb 10.6 L Hct 31.3 L MCV 78 L MCH 26.4 L RDW 15.3 H Discharge - Discharge Clinical Impression: Bite of lower leg Qualifiers: Encounter type: initial encounter Laterality: right Qualified Code(s): S81.851A - Open bite, right lower leg, initial encounter Condition: Good Disposition: HOME, SELF-CARE Additional Instructions: You were seen in the emergency department this morning for a possible snakebite of your right lower leg. We watched you for several hours to ensure that your symptoms did not worsen, obtain labs which were all normal, and you are stable to discharge home. Please observe for any increasing redness around the site, any redness that moves up your leg, any significant bruising, or any other concerning symptoms. If you see any of these signs please return to the emergency department for reevaluation. You will receive a call from poison control tomorrow for follow-up to check on how you are doing.
[2018-12-02 01:05] VITALS: BP 136/75
[2018-12-02 01:26] LABS: ABSOLUTE BASOPHILS # (AUTO) 0.1 10^3/uL (0.0-0.2); ABSOLUTE EOSINOPHILS # (AUTO) 0.2 10^3/uL (0.0-0.6); ABSOLUTE LYMPHOCYTES (AUTO) 1.8 10^3/uL (0.5-4.7); ABSOLUTE MONOCYTES (AUTO) 0.7 10^3/uL (0.1-1.4); ABSOLUTE NEUT (AUTO) 5.3 10^3/uL (1.7-8.2); EOSINOPHILS % (AUTO) 2.3 % (0-6); HEMATOCRIT 31.3 % (36.0-47.0); HEMOGLOBIN 10.6 g/dL (12.0-15.5); LYMPHOCYTES % (AUTO) 22.2 % (13-45); MEAN CORPUSCULAR HEMOGLOBIN 26.4 pg (27.0-33.4); MEAN CORPUSCULAR HGB CONC 33.8 g/dL (32.0-36.0); MEAN CORPUSCULAR VOLUME 78 fl (80-97); MONOCYTES % (AUTO) 8.8 % (3-13); PLATELET COUNT 324 10^3/uL (150-450); RED BLOOD COUNT 4.01 10^6/uL (3.72-5.28); RED CELL DISTRIBUTION WIDTH 15.3 % (11.5-14.0); SEGMENTED NEUTROPHILS % (AUTO) 65.7 % (42-78); TOTAL CELLS COUNTED % (AUTO) 100 %; WHITE BLOOD COUNT 8.1 10^3/uL (4.0-10.5)
[2018-12-02 01:27] LABS: FIBRINOGEN 422 mg/dL (209-497); INTERNATIONAL RATION (INR) 1.09; PROTHROMBIN TIME 14.1 SEC (11.4-15.4)
[2018-12-02] MEDS ORDERED: DIAZEPAM INJ 10 MG/2 ML DISP.SYRIN IM ONE (01:53)
== END 2018-12-02 02:06 | disposition left against medical advice (07) ==
LOC: ER 21:56
DX: S81.851A Open bite, right lower leg, initial encounter (principal); Y92.89 Other specified places as the place of occurrence of the external cause; Z23 Encounter for immunization; Z86.14 Personal history of Methicillin resistant Staphylococcus aureus infection
CPT/HCPCS: 36415; 85025; 85384; 85610; 90715

== ENCOUNTER 2018-12-30 02:39 | Emergency (ER) | payer BC ==
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
[2018-12-30] MEDS ORDERED: HYDROCODONE/ACETAMINOPHEN 5-325 MG TABLET PO ONE (04:04)
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
[2018-12-30 05:29] VITALS: BP 120/91
== END 2018-12-30 05:40 | disposition home or self-care (01) ==
LOC: ER 02:39
DX: M79.641 Pain in right hand (principal); M25.441 Effusion, right hand; R51 Headache; M79.10 Myalgia, unspecified site; M25.50 Pain in unspecified joint; Y04.2XXA Assault by strike against or bumped into by another person, initial encounter; Y93.89 Activity, other specified; F17.200 Nicotine dependence, unspecified, uncomplicated
CPT/HCPCS: 70450

== ENCOUNTER 2019-08-01 22:09 | Emergency (ER) | payer BC ==
[2019-08-01] MEDS ORDERED: MORPHINE SULFATE 10 MG/ML INJ IM ONE (22:33)
[2019-08-01] MEDS ORDERED: CYCLOBENZAPRINE HCL 10 MG TABLET PO ONE (22:33)
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
--- NOTE | 2019-08-01 23:33 | RADIOLOGY REPORT (SQ) ---
Pelvis and left hip two view on 08/01/2019 at 11:18 PM CLINICAL INDICATION: Left hip pain COMPARISON: 04/28/2016 FINDINGS: The hips are well located. The SI joints are well aligned. There are no fractures. No bony abnormality is noted. IMPRESSION: No acute abnormality.
--- NOTE | 2019-08-01 23:34 | RADIOLOGY REPORT (SQ) ---
Left knee two view on 08/01/2019 at 11:19 PM CLINICAL INDICATION: Left knee pain COMPARISON: 07/21/2017 FINDINGS: No joint effusion is noted. There are no fractures. Visualized joints are well aligned. No bony abnormality is noted. IMPRESSION: No acute abnormality.
[2019-08-01] MEDS ORDERED: HYDROCODONE/ACETAMINOPHEN 5-325 MG (6 TAB/ER DISP) PO PRN (23:39)
[2019-08-01] MEDS ORDERED: HYDROCODONE/ACETAMINOPHEN 5-325 MG TABLET PO ONE (23:39)
[2019-08-01] MEDS ORDERED: DIAZEPAM 5 MG TABLET PO ONE (23:39)
[2019-08-02 00:18] VITALS: BP 143/90
== END 2019-08-02 00:15 | disposition home or self-care (01) ==
LOC: ER 22:09
DX: S76.012A Strain of muscle, fascia and tendon of left hip, initial encounter (principal); S76.912A Strain of unspecified muscles, fascia and tendons at thigh level, left thigh, initial encounter; X58.XXXA Exposure to other specified factors, initial encounter; M79.652 Pain in left thigh; M79.18 Myalgia, other site; M25.552 Pain in left hip; M25.562 Pain in left knee; F17.210 Nicotine dependence, cigarettes, uncomplicated; J45.909 Unspecified asthma, uncomplicated
CPT/HCPCS: 96372; 73502; 73560; J2270

== ENCOUNTER 2019-11-05 15:29 | Emergency (ER) | payer BC ==
[2019-11-05 15:37] VITALS: BP 114/95
[2019-11-05] MEDS ORDERED: KETOROLAC TROMETHAMINE INJ/PF 30 MG/1 ML SDV IV ONE (16:57)
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
[2019-11-05 18:08] LABS: ABSOLUTE BASOPHILS # (AUTO) 0.1 10^3/uL (0.0-0.2); ABSOLUTE EOSINOPHILS # (AUTO) 0.2 10^3/uL (0.0-0.6); ABSOLUTE LYMPHOCYTES (AUTO) 2.1 10^3/uL (0.5-4.7); ABSOLUTE MONOCYTES (AUTO) 0.6 10^3/uL (0.1-1.4); ABSOLUTE NEUT (AUTO) 4.5 10^3/uL (1.7-8.2); BASOPHILS % (AUTO) 0.9 % (0-2); EOSINOPHILS % (AUTO) 2.6 % (0-6); HEMATOCRIT 36.7 % (36.0-47.0); HEMOGLOBIN 12.5 g/dL (12.0-15.5); LYMPHOCYTES % (AUTO) 28.2 % (13-45); MEAN CORPUSCULAR HEMOGLOBIN 26.9 pg (27.0-33.4); MEAN CORPUSCULAR HGB CONC 33.9 g/dL (32.0-36.0); MEAN CORPUSCULAR VOLUME 79 fl (80-97); MONOCYTES % (AUTO) 8.5 % (3-13); PLATELET COUNT 316 10^3/uL (150-450); RED BLOOD COUNT 4.63 10^6/uL (3.72-5.28); RED CELL DISTRIBUTION WIDTH 15.3 % (11.5-14.0); SEGMENTED NEUTROPHILS % (AUTO) 59.8 % (42-78); TOTAL CELLS COUNTED % (AUTO) 100 %; WHITE BLOOD COUNT 7.5 10^3/uL (4.0-10.5)
[2019-11-05 18:22] LABS: APPEARANCE,URINE SLIGHTLY-CLOUDY; BILIRUBIN,URINE NEGATIVE (NEGATIVE); COLOR,URINE YELLOW; GLUCOSE, URINE NEGATIVE (NEGATIVE); KETONES,URINE TRACE mg/dL (NEGATIVE); LEUKOCYTE ESTERASE,URINE NEGATIVE (NEGATIVE); NITRITE,URINE NEGATIVE (NEGATIVE); PROTEIN,URINE NEGATIVE (NEGATIVE); URINE SPECIFIC GRAVITY 1.025; UROBILINOGEN,URINE NEGATIVE mg/dL (<2.0)
[2019-11-05 18:24] LABS: ALBUMIN 4.8 g/dL (3.5-5.0); ALKALINE PHOSPHATASE 84 U/L (38-126); ANION GAP 7 (5-19); ASPARTATE AMINO TRANSFERASE 24 U/L (14-36); BILIRUBIN,TOTAL 0.3 mg/dL (0.2-1.3); BLOOD UREA NITROGEN 15 mg/dL (7-20); CALCIUM 9.9 mg/dL (8.4-10.2); CARBON DIOXIDE 25 mmol/L (22-30); CHLORIDE 105 mmol/L (98-107); GLUCOSE 79 mg/dL (75-110); TOTAL PROTEIN 7.9 g/dL (6.3-8.2)
--- NOTE | 2019-11-05 18:55 | RADIOLOGY REPORT (SQ) ---
EXAM DESCRIPTION: U/S NON-OB PELVIS TV W/O DOP IMAGES COMPLETED DATE/TIME: 11/05/2019 5:30 pm REASON FOR STUDY: RLQ and pelvic pain. Unknown LMP. COMPARISON: None. TECHNIQUE: Dynamic and static grayscale images acquired of the pelvis via transvaginal approach and recorded on PACS. Additional selected color Doppler and spectral images recorded. LIMITATIONS: None. FINDINGS: UTERUS: Contour normal. No mass. ENDOMETRIAL STRIPE: The endometrium is focally thickened at the uterine fundus measuring up to 2 cm t hickness. There is a small amount of fluid in the endometrial canal. CERVIX: There are several nabothian cysts at the uterine cervix. RIGHT OVARY AND DOPPLER: Normal size. There is a 1.5 x 1.5 x 1.4 cm heterogeneous hypoechoic mass pr obably a hemorrhagic follicle. Color and spectral Doppler imaging demonstrate normal vascular flow t o the right ovary. LEFT OVARY AND DOPPLER: Normal size. No worrisome masses. Normal arterial vascular flow without evide nce for torsion. FREE FLUID: None noted. OTHER: No other significant finding. MEASUREMENTS: UTERUS: 6.6 x 3.8 x 3.9 cm ENDOMETRIAL STRIPE: 20 mm RIGHT OVARY: 4.4 x 2.8 x 2.8 cm LEFT OVARY: 4.5 x 2.9 x 2.1 cm IMPRESSION: 1. Heterogeneous hypoechoic lesion in the right ovary is likely represents a hemorrhagic ovarian foll icle. A follow-up pelvic ultrasound in 4- 6 weeks is recommended to confirm resolution. 2. Focally thickened endometrium at the uterine fundus. This may be related to phase of menstrual cy boaz, however is indeterminate. Differential includes endometrial hyperplasia and malignancy. This c an also be re-evaluated on follow-up imaging. If follow-up imaging is not performed, direct visualiz ation and sampling is recommended. 3. No evidence of ovarian torsion. TECHNICAL DOCUMENTATION: JOB ID: [id number] 2010 [employer]- All Rights Reserved Rev Reading location - IP/workstation name: [email or web address]
== END 2019-11-06 01:08 | disposition left against medical advice (07) ==
LOC: ER 15:29
DX: R10.9 Unspecified abdominal pain (principal); R10.31 Right lower quadrant pain; R10.2 Pelvic and perineal pain; R50.9 Fever, unspecified; J45.909 Unspecified asthma, uncomplicated; R93.89 Abnormal findings on diagnostic imaging of other specified body structures; Z53.20 Procedure and treatment not carried out because of patient's decision for unspecified reasons
CPT/HCPCS: 36415; 76830; 80053; 81001; 81025; 83690; 85025; 99281

== ENCOUNTER 2020-01-23 16:46 | Emergency (ER) | payer BC ==
[2020-01-23] MEDS ORDERED: NORMAL SALINE 1000 ML 1,000 ML IV ONE (17:17)
[2020-01-23] MEDS ORDERED: DIPHENHYDRAMINE HCL 50 MG/ML VIAL IV ONE (17:17)
[2020-01-23] MEDS ORDERED: PROCHLORPERAZINE EDISYLATE INJ 10 MG/2 ML VIAL IV ONE (17:17)
--- NOTE | 2020-01-23 17:19 | ER Document Report ---
ED Medical Screen (RME) - General Stated Complaint: HEADACHE Time Seen by Provider: 01/23/20 17:12 Information source: Patient Notes: Patient presents complaining of sudden onset headache yesterday around 720. Patient states she had right-sided head pain that caused her to have some slurred speech as though she had difficulty enunciating her words. Patient states she had nausea and vomiting yesterday x1 episode. Patient denies any vomiting today. Patient complains of right-sided headache pain that she describes as throbbing. Patient does have a history of migraines although states this headache is not typical of her usual headaches. I have greeted and performed a rapid initial assessment of this patient. A comprehensive ED assessment and evaluation of the patient, analysis of test results and completion of the medical decision making process will be conducted by additional ED providers. TRAVEL OUTSIDE OF THE [place] IN LAST 30 DAYS: No - Related Data Allergies/Adverse Reactions: No Known Allergies Allergy (Verified 08/01/19 22:16) Past Medical History Pulmonary Medical History: Reports: Hx Asthma Renal/ Medical History: Denies: Hx Peritoneal Dialysis Infectious Medical History: Reports: Hx MRSA Past Surgical History: Reports: Hx Orthopedic Surgery - right hand - Immunizations Hx Diphtheria, Pertussis, Tetanus Vaccination: Yes Physical Exam - Vital signs Vitals: Temp Pulse Resp BP Pulse Ox 98.3 F 97 16 147/92 H 98 01/23/20 17:06 01/23/20 17:06 01/23/20 17:06 01/23/20 17:06 01/23/20 17:06 - Neurological Neuro grossly intact: Yes Cognition: Normal [place] Coma Scale Eye Opening: Spontaneous [place] Coma Scale Verbal: Oriented [place] Coma Scale Motor: Obeys Commands [place] Coma Scale Total: 15 Speech: Normal Course - Vital Signs Vital signs: Temp Pulse Resp BP Pulse Ox 98.3 F 97 16 147/92 H 98 01/23/20 17:06 01/23/20 17:06 01/23/20 17:06 01/23/20 17:06 01/23/20 17:06
--- NOTE | 2020-01-23 17:51 | RADIOLOGY REPORT (SQ) ---
EXAM DESCRIPTION: CT HEAD WITHOUT IMAGES COMPLETED DATE/TIME: 01/23/2020 5:34 pm REASON FOR STUDY: [place], episode of slurred speech COMPARISON: None. TECHNIQUE: Axial images acquired through the brain without intravenous contrast. Images reviewed wi th bone, brain and subdural windows. Images stored on PACS. All CT scanners at this facility use dose modulation, iterative reconstruction, and/or weight based d osing when appropriate to reduce radiation dose to as low as reasonably achievable (ALARA). [facility]: Dose Right [facility]: CareDose [facility]: Dose Right [facility]: Teradose 4D [facility]: [employer] RADIATION DOSE: CT Rad equipment meets quality standard of care and radiation dose reduction techniq ues were employed. CTDIvol: 53.2 mGy. DLP: 1070 mGy-cm. mGy. LIMITATIONS: None. FINDINGS: VENTRICLES: Normal size and contour. CEREBRUM: No masses. No hemorrhage. No midline shift. No evidence for acute infarction. Normal gra y/white matter differentiation. No areas of low density in the white matter. CEREBELLUM: No masses. No hemorrhage. No alteration of density. No evidence for acute infarction. EXTRAAXIAL SPACES: No fluid collections. No masses. ORBITS AND GLOBE: No intra- or extraconal masses. Normal contour of globe without masses. CALVARIUM: No fracture. PARANASAL SINUSES: No fluid or mucosal thickening. SOFT TISSUES: No mass or hematoma. OTHER: No other significant finding. IMPRESSION: NORMAL BRAIN CT WITHOUT CONTRAST. EVIDENCE OF ACUTE STROKE: NO. COMMENT: Quality ID # [id number]: Final reports with documentation of one or more dose reduction techniques (e.g., Automated exposure control, adjustment of the mA and/or kV according to patient size, use of iterative reconstruction technique) TECHNICAL DOCUMENTATION: JOB ID: [id number] 2010 [employer]- All Rights Reserved Reading location - IP/workstation name: [email or web address]
[2020-01-23] MEDS ORDERED: BUTALB/ACETAMINOPHEN/CAFFEINE 1 TAB EACH PO ONE (20:09)
[2020-01-23] MEDS ORDERED: DIPHENHYDRAMINE HCL 50 MG/ML VIAL ONE (21:51)
[2020-01-23] MEDS ORDERED: PROCHLORPERAZINE EDISYLATE INJ 10 MG/2 ML VIAL ONE (21:51)
[2020-01-23 22:43] LABS: ABSOLUTE BASOPHILS # (AUTO) 0.1 10^3/uL (0.0-0.2); ABSOLUTE EOSINOPHILS # (AUTO) 0.3 10^3/uL (0.0-0.6); ABSOLUTE LYMPHOCYTES (AUTO) 1.8 10^3/uL (0.5-4.7); ABSOLUTE MONOCYTES (AUTO) 0.7 10^3/uL (0.1-1.4); ABSOLUTE NEUT (AUTO) 6.2 10^3/uL (1.7-8.2); BASOPHILS % (AUTO) 1.3 % (0-2); EOSINOPHILS % (AUTO) 2.8 % (0-6); HEMATOCRIT 33.2 % (36.0-47.0); HEMOGLOBIN 11.2 g/dL (12.0-15.5); LYMPHOCYTES % (AUTO) 20.3 % (13-45); MEAN CORPUSCULAR HEMOGLOBIN 27.4 pg (27.0-33.4); MEAN CORPUSCULAR HGB CONC 33.8 g/dL (32.0-36.0); MEAN CORPUSCULAR VOLUME 81 fl (80-97); MONOCYTES % (AUTO) 7.2 % (3-13); PLATELET COUNT 332 10^3/uL (150-450); RED CELL DISTRIBUTION WIDTH 16.1 % (11.5-14.0); SEGMENTED NEUTROPHILS % (AUTO) 68.4 % (42-78); TOTAL CELLS COUNTED % (AUTO) 100 %; WHITE BLOOD COUNT 9.1 10^3/uL (4.0-10.5)
[2020-01-23] MEDS ORDERED: SUMATRIPTAN SUCCINATE INJ/PF 6 MG/0.5 ML SDV SUBCUT ONE (22:56)
[2020-01-23] MEDS ORDERED: CARBAMAZEPINE 200 MG TABLET PO ONE (22:58)
[2020-01-23] MEDS ORDERED: METOCLOPRAMIDE HCL INJ/PF 10 MG/2 ML SDV IV ONE (22:58)
--- NOTE | 2020-01-23 23:49 | RADIOLOGY REPORT (SQ) ---
CLINICAL INDICATION: worst [place] of life vom slurred speech 2d. . TECHNIQUE: CT arteriography was obtained of the extracranial carotid and vertebral arteries and nikolski of [place] with multiplanar MIP and/or 3-D angiographic reconstructions. This exam was performed according to our departmental dose-optimization program, which includes automated exposure control, adjustment of the mA and/or kV according to patient size and/or use of iterative reconstruction techniques. COMPARISON: None. CORRELATION: None. FINDINGS: NECK: The aortic arch demonstrate common origin of left common carotid and brachiocephalic. No hemodynamically significant stenosis is identified at the origin of great vessels. Artifact from venous opacification Right: The common carotid artery is unremarkable without evidence of hemodynamically significant stenosis. The external carotid artery is unremarkable without evidence of hemodynamically significant stenosis. The cervical internal carotid artery is unremarkable without evidence of hemodynamically significant stenosis. Left: The common carotid artery is unremarkable without evidence of hemodynamically significant stenosis. The external carotid artery is unremarkable without evidence of hemodynamically significant stenosis. The cervical internal carotid artery is unremarkable without evidence of hemodynamically significant stenosis. The vertebral arteries are unremarkable without evidence of hemodynamically significant stenosis. Surrounding soft tissues of the neck are unremarkable. A few shotty jugulodigastric lymph nodes are seen. Lung apices are grossly clear. Brain: Artifact from venous opacification. Intracranial internal carotid arteries are patent. The central middle cerebral arteries are patent. The central anterior cerebral arteries are patent. The anterior communicating artery is patent. The central posterior cerebral arteries are patent. The cerebral arteries more peripherally are difficult to assess given adjacent venous opacification. Vertebrobasilar system is patent. Internal carotid artery stenosis quantification and significance is defined utilizing the methods of [place] Symptomatic Carotid Endarterectomy Trial (NASCET). IMPRESSION: No evidence of hemodynamically significant stenosis extracranial carotid or vertebral systems. Unremarkable CTA central nikolski of Senior.
[2020-01-24 00:05] LABS: ALBUMIN 3.2 g/dL (3.5-5.0); ALKALINE PHOSPHATASE 81 U/L (38-126); ANION GAP 6 (5-19); ASPARTATE AMINO TRANSFERASE 20 U/L (14-36); BILIRUBIN,DIRECT 0.1 mg/dL (0.0-0.4); BILIRUBIN,TOTAL 0.1 mg/dL (0.2-1.3); BLOOD UREA NITROGEN 13 mg/dL (7-20); CALCIUM 8.4 mg/dL (8.4-10.2); CARBON DIOXIDE 23 mmol/L (22-30); CHLORIDE 108 mmol/L (98-107); GLUCOSE 87 mg/dL (75-110); POTASSIUM 3.9 mmol/L (3.6-5.0); TOTAL PROTEIN 5.7 g/dL (6.3-8.2)
--- NOTE | 2020-01-24 00:34 | ER Document Report ---
ED General - General Chief Complaint: Headache Stated Complaint: HEADACHE Time Seen by Provider: 01/23/20 17:12 Primary Care Provider: LALO TREVIÑO PA [Primary Care Provider] - Follow up as needed Notes: 34-year-old female history of lifelong self-reported migraines not previously worked up by a neurologist, smoking presents with headache for past 2 days. Patient says she has been suffering from headaches many days of the month for approximately 25 years. The current headache started slowly yesterday but then suddenly worsened when she was taking a shower and she bent her head and she felt a momentary feeling like. Speech was slurred and she was confused and had one episode of vomiting. Pain is worst over the right frontal area radiating to right eye and rest of right head. Patient denies any change in vision, change in speech currently, change in gait, weakness or numbness, other trauma, recent chiropractic manipulation, prior surgeries, unexplained weight loss, eye pain, excessive sweating of face, drug/alcohol use fever, neck pain or stiffness TRAVEL OUTSIDE OF THE [place] IN LAST 30 DAYS: No - Related Data Allergies/Adverse Reactions: No Known Allergies Allergy (Verified 08/01/19 22:16) Past Medical History - General Information source: Patient - Social History Smoking Status: Current Every Day Smoker Chew tobacco use (# tins/day): No Frequency of alcohol use: None Drug Abuse: None Family History: Reviewed & Not Pertinent Patient has homicidal ideation: No Pulmonary Medical History: Reports: Hx Asthma Renal/ Medical History: Denies: Hx Peritoneal Dialysis Infectious Medical History: Reports: Hx MRSA Past Surgical History: Reports: Hx Orthopedic Surgery - right hand - Immunizations Hx Diphtheria, Pertussis, Tetanus Vaccination: Yes Review of Systems - Review of Systems Notes: REVIEW OF SYSTEMS: CONSTITUTIONAL : Denies fever, chills, or sweats. EENT: Denies recent cold/sinus symptoms, denies throat pain CARDIOVASCULAR: Denies chest pain, THERON RESPIRATORY: Denies cough, denies shortness of breath. GASTROINTESTINAL: Denies abdominal pain, nausea/vomiting. GENITOURINARY: Denies difficulty urinating, painful urination. FEMALE GENITOURINARY: Denies abnormal vaginal bleeding, vaginal discharge. MUSCULOSKELETAL: Denies neck pain, back pain. SKIN: Denies rash or skin lesions. HEMATOLOGIC : Denies easy bruising or bleeding. LYMPHATIC: Denies swollen, enlarged glands. NEUROLOGICAL: + headache, denies change in gait. PSYCHIATRIC: Denies anxiety or stress or depression. Physical Exam - Vital signs Vitals: Temp Pulse Resp BP Pulse Ox 98.3 F 97 16 147/92 H 98 01/23/20 17:06 01/23/20 17:06 01/23/20 17:06 01/23/20 17:06 01/23/20 17:06 - Notes Notes: PHYSICAL EXAMINATION: GENERAL: Well-appearing, well-nourished uncomfortable appearing young adult female lying in stretcher in no acute distress. HEAD: Atraumatic, normocephalic. EYES: Pupils equal round and appropriate constriction, sclera anicteric, conjunctiva are normal. ENT: nares patent, moist mucous membranes. NECK: Normal range of motion, supple without lymphadenopathy no bruits, no C- spine tenderness or deformity LUNGS: Breath sounds clear to auscultation bilaterally and equal. No wheezes rales or rhonchi. HEART: Regular rate and rhythm without murmurs ABDOMEN: Soft, nontender, no guarding, no masses, no CVAT EXTREMITIES: Normal range of motion, no pitting or edema. No cyanosis. NEUROLOGICAL: Awake, alert, conversing appropriately, moves all extremities spontaneously, cranial nerves II through XII intact bilaterally, normal fin tori-to-nose bilaterally, 5-5 strength in all extremities, normal sensation in all extremities, no point tenderness to face PSYCH: Normal mood, normal affect. SKIN: Warm, Dry, normal turgor, no rashes or lesions noted. Course - Re-evaluation Re-evalutation: 01/24/20 00:32 Possible slurred speech momentarily so although most likely typical migraine, rule out carotid/vertebral dissection, ICH, mass. obtained CT and CTA head and neck without any emergent findings, give analgesia and fluids and patient feels significantly improved currently. Possibly cluster headache or trigeminal neuralgia given distribution of pain. No signs of infection. Spoke to patient at length about possible treatment modalities that could be explored with the neurologist and importance of following up outpatient with neurology and with primary doctor. Patient demonstrated understanding of this plan and was in agreement with discharge and follow-up plan. Patient denied having any other questions or concerns. Patient ready for discharge. Patient frequently taking BC powder and I educated her the importance of not exceeding recommended doses and ordered salicylate and acetaminophen levels. - Vital Signs Vital signs: Temp Pulse Resp BP Pulse Ox 98.3 F 97 16 147/92 H 98 01/23/20 17:06 01/23/20 17:06 01/23/20 17:06 01/23/20 17:06 01/23/20 17:06 - Laboratory Result Diagrams: 01/23/20 22:34 01/23/20 23:26 Laboratory results interpreted by me: 01/23/20 01/23/20 01/23/20 22:34 23:26 23:26 Hgb 11.2 L Hct 33.2 L RDW 16.1 H Sodium 136.8 L Chloride 108 H Total Bilirubin 0.1 L Total Protein 5.7 L Albumin 3.2 L Acetaminophen < 10 L Discharge - Discharge Clinical Impression: Headache Disposition: HOME, SELF-CARE Additional Instructions: Headache . Most headaches are due to emotional stress, with resultant muscle tension (tension headache). Occasionally, headaches are secondary to changes in the blood vessels of the scalp (vascular headache and migraine headache). Sometimes, a headache is the first symptom of another developing illness, such as a viral infection. You have no evidence of stroke, bleeding, meningitis, or other serious cause of your headache. The treatment of headaches varies with the severity and cause of the pain. Not all headaches need pain shots. In fact, there is evidence that using n arcotics for headaches may make them worse in the long run. The physician will determine the therapy that's in your best interest. If you develop a fever, if the headache is different from any you've previously experienced, or if the headache progressively worsens, then call your physician at once or go to the emergency room. Follow-up with your neurologist and primary doctor within 1 week. If you have any worsening symptoms including worsening pain, change in vision, change in how you walk or talk, weakness or numbness, fever, neck stiffness, or any other worsening or alarming symptoms return to the emergency department immediately. Your blood pressure was slightly high at 147/92 which she should have rechecked by the primary doctor, untreated high blood pressure is a risk factor for heart attack, stroke, and . Referrals: LALO TREVIÑO PA [Primary Care Provider] - Follow up as needed JEANNIE UREÑA MD [EMERITUS] - Follow up as needed IAN VALDEZ MD [NO LOCAL MD] - Follow up as needed SIOBHAN LOERA MD [NO LOCAL MD] - Follow up as needed ROMAIN SHIN DO [NO LOCAL MD] - Follow up as needed JACINTO GARCIA DO [NO LOCAL MD] - Follow up as needed
[2020-01-24 01:43] VITALS: BP 102/70
== END 2020-01-24 01:42 | disposition home or self-care (01) ==
LOC: ER 16:46
DX: R51.9 Headache, unspecified (principal); R11.2 Nausea with vomiting, unspecified; R41.0 Disorientation, unspecified; F17.200 Nicotine dependence, unspecified, uncomplicated; J45.909 Unspecified asthma, uncomplicated
CPT/HCPCS: 99285; 96372; 96361; 96374; 96375; 36415; 80307 ×2; 84703; 85025; 80053; 70450; 70496; 70498; J3490; J1200; J2765; J0780; J3030; J7030

== ENCOUNTER → 2020-02-18 | Day surgery (SDC) | payer BC ==
--- NOTE | 2020-02-18 15:41 | RADIOLOGY REPORT (SQ) ---
EXAM DESCRIPTION: ARTHRO HIP INJ W/ANESTHESIA; FLUORO/NEEDLE PLACEMENT IMAGES COMPLETED DATE/TIME: 02/18/2020 3:32 pm REASON FOR STUDY: M25.852 OTHER SPECIFIED JOINT DISORDERS, LEFT HIP M25.852 OTHER SPECIFIED JOINT D ISORDERS, LEFT HIP COMPARISON: None. FLUOROSCOPY TIME: 17 SECONDS OF FLUOROSCOPY USED. 1 images saved to PACS. LIMITATIONS: None. PROCEDURE: Procedure, risks, benefits and alternatives explained to patient who then gave written c onsent. The left hip was marked and a time-out was called for correct marking verification. Entry s ite marked using fluoroscopic guidance. Hip prepped and draped using sterile technique. Local anes thesia achieved using 1% lidocaine injection. Hypodermic needle introduced into the joint space und er direct fluoroscopic visualization. Non-ionic contrast instilled to confirm intra-articular positi on. Dilute gadolinium solution then injected. Needle removed and entry site covered with sterile b andage. No immediate complications noted. TECHNIQUE: Digital images acquired during fluoroscopy and stored on PACS. Patient immediately take n to the MR suite for additional imaging. INJECTION LOCATION: Left hip. CONTRAST TYPE AND AMOUNT: 10 mL Prohance/Saline mixture. IMPRESSION: SUCCESSFUL NEEDLE PLACEMENT AND INJECTION FOR LEFT HIP MR ARTHROGRAM. COMMENT: Quality ID 145: Final reports for procedures using fluoroscopy that document radiation exp osure indices, or exposure time and number of fluorographic images (if radiation exposure indices are not available) TECHNICAL DOCUMENTATION: JOB ID: [id number] 2010 [employer]- All Rights Reserved Reading location - IP/workstation name: [email or web address] [id number]
--- NOTE | 2020-02-18 15:41 | RADIOLOGY REPORT (SQ) ---
EXAM DESCRIPTION: ARTHRO HIP INJ W/ANESTHESIA; FLUORO/NEEDLE PLACEMENT IMAGES COMPLETED DATE/TIME: 02/18/2020 3:32 pm REASON FOR STUDY: M25.852 OTHER SPECIFIED JOINT DISORDERS, LEFT HIP M25.852 OTHER SPECIFIED JOINT D ISORDERS, LEFT HIP COMPARISON: None. FLUOROSCOPY TIME: 17 SECONDS OF FLUOROSCOPY USED. 1 images saved to PACS. LIMITATIONS: None. PROCEDURE: Procedure, risks, benefits and alternatives explained to patient who then gave written c onsent. The left hip was marked and a time-out was called for correct marking verification. Entry s ite marked using fluoroscopic guidance. Hip prepped and draped using sterile technique. Local anes thesia achieved using 1% lidocaine injection. Hypodermic needle introduced into the joint space und er direct fluoroscopic visualization. Non-ionic contrast instilled to confirm intra-articular positi on. Dilute gadolinium solution then injected. Needle removed and entry site covered with sterile b andage. No immediate complications noted. TECHNIQUE: Digital images acquired during fluoroscopy and stored on PACS. Patient immediately take n to the MR suite for additional imaging. INJECTION LOCATION: Left hip. CONTRAST TYPE AND AMOUNT: 10 mL Prohance/Saline mixture. IMPRESSION: SUCCESSFUL NEEDLE PLACEMENT AND INJECTION FOR LEFT HIP MR ARTHROGRAM. COMMENT: Quality ID 145: Final reports for procedures using fluoroscopy that document radiation exp osure indices, or exposure time and number of fluorographic images (if radiation exposure indices are not available) TECHNICAL DOCUMENTATION: JOB ID: [id number] 2010 [employer]- All Rights Reserved Reading location - IP/workstation name: [email or web address] [id number]
--- NOTE | 2020-02-19 10:10 | RADIOLOGY REPORT (SQ) ---
EXAM DESCRIPTION: MRI LT LOWER JOINT WITH IMAGES COMPLETED DATE/TIME: 02/18/2020 4:10 pm REASON FOR STUDY: M25.852 OTHER SPECIFIED JOINT DISORDERS, LEFT HIP M25.852 OTHER SPECIFIED JOINT D ISORDERS, LEFT HIP COMPARISON: None. TECHNIQUE: Post arthrogram imaging is performed using T1 and T1 and T2 fat saturated sequences of th e pelvis and specific hip of interest. LIMITATIONS: None. FINDINGS: JOINT DISTENSION: Adequate. No loose body. BONE MARROW: No edema. No marrow replacement. FEMORAL HEAD, NECK, AND ACETABULUM: No occult fracture. No osteophytes or subchondral cysts. Normal s phericity of femoral head/neck junction. Normal acetabular coverage. LABRUM AND CARTILAGE: Minimal blunting and rounding of the superior and anterior superior labrum with probable slight physiologic undercutting posteriorly. No paralabral cyst formation. Cartilage of n ormal thickness without delamination. No subchondral cysts or erosions. MUSCLES AND SOFT TISSUES: Adductors and piriformis normal. Abductors and greater trochanteric bursa n ormal without edema or fluid. Iliopsoas bursa without fluid. Hamstring attachments without edema or t ear. PELVIC SOFT TISSUES: No masses or adenopathy. SCIATIC NERVE: Identified without masses. OTHER: No other significant finding. IMPRESSION: 1. No clear evidence of dysplastic hip changes. Minimal labral findings as above. TECHNICAL DOCUMENTATION: JOB ID: [id number] 2010 [employer]- All Rights Reserved Reading location - IP/workstation name: [email or web address]
== END ==
LOC: RAD 14:39
PROVIDERS: ATTEND Physician Assistant
DX: M25.852 Other specified joint disorders, left hip (principal)
CPT/HCPCS: 73722; 77002; 27095; A9576

== ENCOUNTER 2020-04-02 21:56 | Emergency (ER) | payer BC ==
[2020-04-02 22:02] VITALS: BP 134/77
[2020-04-02] MEDS ORDERED: IBUPROFEN 600 MG TABLET PO ONE (23:20)
[2020-04-02] MEDS ORDERED: LIDOCAINE 1% INJ-PF (10 MG/ML) 30 ML SDV INJ ONE (23:20)
--- NOTE | 2020-04-02 23:22 | ER Document Report ---
ED Medical Screen (RME) - General Chief Complaint: Hand Injury Stated Complaint: RIGHT HAND INJURY/ACTIVE BLEED Time Seen by Provider: 04/02/20 23:13 Primary Care Provider: LALO TREVIÑO PA [Primary Care Provider] - Follow up as needed Notes: Patient is a 34-year-old female presents emergency department with a chief complaint of right hand pain. Patient states that she got angry and ended up accidentally punching a lantern. She states that she is up-to-date on her immunizations. Exam: Laceration noted to right fourth knuckle. I have greeted and performed a rapid initial assessment of this patient. A comprehensive ED assessment and evaluation of the patient, analysis of test results and completion of medical decision making process will be conducted by an additional ED providers. TRAVEL OUTSIDE OF THE [place] IN LAST 30 DAYS: No - Related Data Allergies/Adverse Reactions: No Known Allergies Allergy (Verified 08/01/19 22:16) Past Medical History Pulmonary Medical History: Reports: Hx Asthma Renal/ Medical History: Denies: Hx Peritoneal Dialysis Infectious Medical History: Reports: Hx MRSA Past Surgical History: Reports: Hx Orthopedic Surgery - right hand - Immunizations Hx Diphtheria, Pertussis, Tetanus Vaccination: Yes Physical Exam - Vital signs Vitals: Temp Pulse Resp BP Pulse Ox 98.8 F 110 H 16 134/77 H 99 04/02/20 22:01 04/02/20 22:01 04/02/20 22:01 04/02/20 22:01 04/02/20 22:01 Course - Vital Signs Vital signs: Temp Pulse Resp BP Pulse Ox 98.8 F 110 H 16 134/77 H 99 04/02/20 22:01 04/02/20 22:01 04/02/20 22:01 04/02/20 22:01 04/02/20 22:01 Doctor's Discharge - Discharge Referrals: LALO TREVIÑO PA [Primary Care Provider] - Follow up as needed
== END 2020-04-03 04:20 | disposition left against medical advice (07) ==
LOC: ER 21:56
DX: S61.411A Laceration without foreign body of right hand, initial encounter (principal); W25.XXXA Contact with sharp glass, initial encounter; Z86.14 Personal history of Methicillin resistant Staphylococcus aureus infection
CPT/HCPCS: 99281